=== PATIENT | female | born 1985 | race African-American/Black ===

== ENCOUNTER 2020-08-28 00:22 | Emergency (ER) | payer OTHER ==
[2020-08-28 00:31] VITALS: BP 127/89; PULSE 72; TEMP 98.4; BMI 29.2
[2020-08-28] MEDS ORDERED: LIDOCAINE 5% TOPICAL PATCH TP ONE (01:13)
[2020-08-28] MEDS ORDERED: ACETAMINOPHEN 325 MG TABLET (FP) PO ONE (01:13)
[2020-08-28] MEDS ORDERED: IBUPROFEN 600 MG TABLET (FP) PO ONE (01:53)
[2020-08-28] MEDS ORDERED: LIDOCAINE 5% TOPICAL PATCH ONE (01:55)
[2020-08-28] MEDS ORDERED: ACETAMINOPHEN 325 MG TABLET (FP) ONE (01:55)
== END 2020-08-28 02:09 | disposition home or self-care (01) ==
LOC: JER 00:22
DX: M79.605 Pain in left leg (principal)
CPT/HCPCS: 99283-25